=== PATIENT | male | born 1950 | race Caucasian/White ===

== ENCOUNTER 2024-07-01 11:02 | Emergency (ER) | payer OTHER ==
[~2024-07-01] VITALS: Ht 177.8 cm; Wt 72.6 kg
[2024-07-01 11:25] LABS: BASOPHILS ABSOLUTE AUTO 0.04 K/mm3 (0.00-0.23); BASOPHILS PERCENT AUTO 0 % (0-2); EOSINOPHILS PERCENT AUTO 0 % (0-6); Hematocrit 36.6 % (37.0-53.0); Hemoglobin 12.5 g/dL (13.5-17.5); IMMATURE GRAN ABSOLUTE AUTO 0.03 K/mm3 (0.00-0.10); IMMATURE GRAN PERCENT AUTO 0 % (0-1); LYMPHOCYTES ABSOLUTE AUTO 0.96 K/mm3 (0.84-5.20); LYMPHOCYTES PERCENT AUTO 9 % (21-46); MONOCYTES ABSOLUTE AUTO 0.36 K/mm3 (0.16-1.47); MONOCYTES PERCENT AUTO 3 % (4-13); Mean Corpuscular HGB 29.1 pg (26.0-34.0); Mean Corpuscular HGB Conc 34.2 g/dL (31.5-36.5); Mean Corpuscular Volume 85 fL (80-100); Mean Platelet Volume 9.2 fL (9.1-12.4); NEUTROPHILS ABSOLUTE AUTO 9.47 K/mm3 (1.96-9.15); NEUTROPHILS PERCENT AUTO 87 % (41-73); Platelet Count 229 K/mm3 (150-400); RDW Coefficient Variation 12.4 % (11.7-14.2); RDW Standard Deviation 38.3 fL (35.1-46.3); White Blood Cell Count 10.86 K/mm3 (4.00-11.30)
[2024-07-01] MEDS ORDERED: Lactated Ringer's 1,000 ML IV ONE (11:35)
[2024-07-01] MEDS ORDERED: HYDROmorphone HCl/Pf 1MG SYR IV ONE ×2 (11:35→13:25)
[2024-07-01] MEDS ORDERED: HYDROmorphone HCl 0.5 MG/0.5 ML SYR IV ONE ×2 (11:55→13:30)
[2024-07-01 12:05] LABS: Albumin, Blood 3.2 g/dL (3.4-5.0); Bilirubin, Total 0.5 mg/dL (0.1-1.0); Calcium, Blood 8.9 mg/dL (8.5-10.1); Globulin, Blood 3.3 g/dL (2.2-4.0); Potassium, Blood 3.9 mmol/L (3.5-5.5); Total Protein, Blood 6.5 g/dL (6.4-8.2)
[2024-07-01] MEDS ORDERED: Ondansetron HCl 2 MG / ML 2ML Vial IV ONE (14:40)
[2024-07-01] MEDS ORDERED: Lidocaine 2% Jelly Uro-Jet UR ONE (14:45)
[2024-07-01 15:29] LABS: Source, Urine Straight Cath
[2024-07-01 15:33] LABS: Appearance, Urine Clear (Clear); Bilirubin, Urine Neg (Neg); Blood, Urine 5+ (Neg); Glucose Qualitative, Urine Neg (Neg); Ketones, Urine 1+ (Neg); Leukocyte Esterase, Urine Neg (Neg); Nitrite, Urine Neg (Neg); Protein, Urine Neg (Neg); Specific Gravity, Urine 1.015 (1.003-1.022); Urobilinogen, Urine NORM (Normal)
[2024-07-01 15:39] LABS: Color, Urine Pale Yellow (P-Yellow)
[2024-07-01 15:40] LABS: Bacteria Rare /hpf; Red Blood Cells, Urine 25-50 /hpf (0-2); Squamous Epithelial Cells Not Seen /hpf (Few); White Blood Cells, Urine 0-2 /hpf (0-5)
[2024-07-01] MEDS ORDERED: Droperidol 5 mg/2 ml Vial IV ONE (16:05)
== END 2024-07-01 18:30 | disposition short-term general hospital (02) ==
LOC: ER 11:02
PROVIDERS: Emergency Medicine
DX: N13.2 Hydronephrosis with renal and ureteral calculous obstruction (principal)
CPT/HCPCS: 51701; 74177; 80053; 81001; 83690; 85025; 96374; 96375; 96376; 99285-25; J1171; J1790; J2405; J7120; Q9967

== ENCOUNTER → 2024-08-05 | Outpatient (CLI) | payer OTHER ==
[2024-08-10 10:50] LABS: CALCIUM, URINE - PER 24H 120 mg/d (100-250); CHLORIDE, URINE - PER 24H 105 mmol/d (140-250); CHLORIDE, URINE - PER VOLUME 70 mmol/L; CITRIC ACID, URINE - PER 24H 171 mg/d (320-1240); CITRIC ACID,URINE - PER VOLUME 114 mg/L; CREATININE, URINE - PER 24H 1500 mg/d (800-2100); CREATININE, URINE - PER VOLUME 100 mg/dL; HOURS COLLECTED 24 hr; MAGNESIUM, URINE PER 24H 45 mg/d (12-199); OXALATE, URINE - PER 24H 21 mg/d (16-49); OXALATE, URINE - PER VOLUME 14 mg/L; PH, URINE 6.69 (5.00-7.50); PHOSPHORUS, URINE - PER 24H 510 mg/d (400-1300); PHOSPHORUS, URINE - PER VOLUME 34 mg/dL; POTASSIUM, URINE - PER 24H 56 mmol/d (25-125); POTASSIUM, URINE - PER VOLUME 37 mmol/L; SODIUM, URINE - PER 24H 111 mmol/d (51-286); SODIUM, URINE - PER VOLUME 74 mmol/L; SULFATE, URINE - PER 24H 14 mmol/d (6-30); SULFATE, URINE - PER VOLUME 9 mmol/L; TOTAL VOLUME 1500 mL; URIC ACID, URINE - PER 24H 435 mg/d (250-750); URINE SUPERSATURATION INTERP Abnormal; URINE SUPERSATURATION, CAHPO4 2.37; URINE SUPERSATURATION, CAOX 3.89
== END | disposition home or self-care (01) ==
LOC: LAB SHORT 07:00 → LAB 07:00 → LAB FUT 07-22 10:00
PROVIDERS: Urology
DX: T19.1XXD Foreign body in bladder, subsequent encounter (principal)
CPT/HCPCS: 81003; 81050; 82131; 82140; 82340; 82436; 82507; 82570; 83735; 83935; 83945; 84105; 84133; 84300; 84392; 84560

== ENCOUNTER → 2025-02-20 | Outpatient (CLI) | payer OTHER ==
[2025-02-20 12:39] LABS: Protein, Urine Quantitative 9.8 mg/dL (0.0-11.9)
[2025-02-20 12:41] LABS: Microalbumin, Urine Quant. <5.000 mg/L (0.000-20.000)
== END ==
LOC: LAB 08:30 → LAB SHORT 08:30 → LAB FUT 02-16 13:50
PROVIDERS: Internal Medicine Nephrology
DX: E78.00 Pure hypercholesterolemia, unspecified (principal); D50.9 Iron deficiency anemia, unspecified; D52.8 Other folate deficiency anemias; D51.8 Other vitamin B12 deficiency anemias; R94.6 Abnormal results of thyroid function studies; R94.5 Abnormal results of liver function studies; R76.9 Abnormal immunological finding in serum, unspecified; N25.81 Secondary hyperparathyroidism of renal origin; E55.9 Vitamin D deficiency, unspecified; D63.1 Anemia in chronic kidney disease; N18.30 Chronic kidney disease, stage 3 unspecified
CPT/HCPCS: 81050; 82043; 82570; 84156